=== PATIENT | male | born 1950 | race Caucasian/White ===

== ENCOUNTER 2017-02-11 10:00 | Day surgery (SDC) | payer BC ==
[~2017-02-11 10:00] MED LIST: Lactated Ringers 1,000 ML IV SCH
[2017-02-11] MEDS ORDERED: Lidocaine 2% 5 ML SDV ONE (10:27)
[2017-02-11] MEDS ORDERED: Midazolam 1 MG/ML 2 ML SDV ONE (10:28)
[2017-02-11] MEDS ORDERED: fentaNYL 100 MCG/2 ML SDV ONE (10:28)
[2017-02-11] MEDS ORDERED: Propofol 200 MG/20 ML SDV ONE (10:28)
--- NOTE | 2017-02-11 11:30 | PCM.PREANE ---
Preanesthetic Assessment - Anesthesia/Transfusion/Family Hx Anesthesia History: Prior Anesthesia Without Reaction Other Type of Anesthesia Reaction Comment: Denies any known problem in past Family History of Anesthesia Reaction: No Transfusion History: No Prior Transfusion(s) Intubation History: Unknown - Review of Systems General: No Symptoms Pulmonary: No Symptoms Cardiovascular: No Symptoms Gastrointestinal: No Symptoms, Other (h/o exc. of tubular neuroma 2 years ago in [facility]) Neurological: No Symptoms Other: Reports: None - Physical Assessment O2 Sat by Pulse Oximetry: 96 Respiratory Rate: 16 Vital Signs: Last Vital Signs Temp 36.7 C 02/11/17 10:13 Pulse 76 02/11/17 10:13 Resp 16 02/11/17 10:13 BP 128/92 H 02/11/17 10:13 Pulse Ox 96 02/11/17 10:13 Height: 1.8 m Weight: 91.626 kg ASA Class: 3 Mental Status: Alert & Oriented x3 Airway Class: Mallampati = 2 Dentition: Reports: Bridge (fixed bridge upper front) Thyro-Mental Finger Breadths: 3 Mouth Opening Finger Breadths: 3 ROM/Head Extension: Full Lungs: Clear to Auscultation, Normal Respiratory Effort Cardiovascular: Regular Rate, Regular Rhythm - Allergies Allergies/Adverse Reactions: Allergies Allergy/AdvReac Type Severity Reaction Status Date / Time No Known Allergies Allergy Verified 02/08/17 15:14 - Blood Blood Available: No - Anesthesia Plan Pre-Op Medication Ordered: None - Acknowledgements Anesthesia Type Planned: MAC Pt an Appropriate Candidate for the Planned Anesthesia: Yes Alternatives and Risks of Anesthesia Discussed w Pt/Guardian: Yes Pt/Guardian Understands and Agrees with Anesthesia Plan: Yes PreAnesthesia Questionnaire - Past Health History Medical/Surgical History: Denies Medical/Surgical History Other HEENT History: wears glasses, has upper partial removable denture Cardiovascular History: Reports: High Cholesterol, Hypertension, PVD (s/p right carotid endarterectomy 7-8 years ago) Other Respiratory History: REports long time smoker, current use 1 pack/day Gastrointestinal History: Reports: Other (See Below) (h/o tubular adenoma of colon) Musculoskeletal History: Reports: Arthritis, Back Pain, Chronic, Fracture, Neck Pain, Chronic, Osteoarthritis (bilateral knees) Other Musculoskeletal History: hx of fx fingers Dermatologic History: Reports: Other (See Below) Other Dermatologic History: hx of hill on hands with skin grafts - Past Surgical History Head Surgeries/Procedures: Reports: None Cardiovascular Surgical History: Reports: Carotid Endarterectomy Other Cardiovascular Surgeries/Procedures: right side GI Surgical History: Reports: Colonoscopy Dermatological Surgical History: Reports: Skin Graft - SUBSTANCE USE Smoking Status *Q: Current Every Day Smoker Tobacco Use Within Last Twelve Months: Cigarettes Recreational Drug Use History: No - HOME MEDS Home Medications: Home Meds Aspirin [Ecotrin] 81 mg PO DAILY 11/21/14 [History] Losartan/Hydrochlorothiazide [Losartan-HCTZ 50-12.5 MG] 1 tab PO DAILY 11/21/14 [History] Fish Oil/[place]-3 Fatty Acids [Fish Oil 1,000 MG] 1 gm PO DAILY 02/08/17 [History ] - CURRENT (IN HOUSE) MEDS Current Meds: Current Medications Lactated Ringer's (Ringers, Lactated) 1,000 mls @ 125 mls/hr IV ASDIRECTED [facility]I Last Admin: 02/11/17 10:15 Dose: 125 mls/hr Discontinued Medications Fentanyl (Sublimaze) Confirm Administered Dose 100 mcg .ROUTE .STK-MED ONE Stop: 02/11/17 10:29 Lidocaine (Xylocaine-Mpf 2%) Confirm Administered Dose 10 ml .ROUTE .STK-MED ONE Stop: 02/11/17 10:28 Midazolam HCl (Versed 1 Mg/Ml) Confirm Administered Dose 2 mg .ROUTE .STK-MED ONE Stop: 02/11/17 10:29 Propofol (Diprivan 20 Ml) Confirm Administered Dose 400 mg .ROUTE .STK-MED ONE Stop: 02/11/17 10:29
[2017-02-11] MEDS ORDERED: Lactated Ringers 1,000 ML IV SCH (13:30)
--- NOTE | 2017-02-11 13:31 | PCM.OPNOTE ---
- General Post-Op/Procedure Note Date of Surgery/Procedure: 02/11/17 Operative Procedure(s): Colonoscopy Pre Op Diagnosis: Personal history of colon polyps Post-Op Diagnosis: Sigmoid diverticulosis Anesthesia Technique: MAC (ASA III) Primary Surgeon: Higinio Eid Condition: Good Free Text/Narrative:: Dictation [id number] CPT CODE 08482
--- NOTE | 2017-02-11 13:46 | OR ---
SURGEON: Higinio Eid M.D. DATE OF PROCEDURE: 02/11/2017 OPERATION PERFORMED: Colonoscopy. ANESTHESIA: MAC. ASA CLASSIFICATION: II. PREOPERATIVE DIAGNOSIS: Personal history of colon polyps. POSTOPERATIVE DIAGNOSIS: Diverticulosis of the sigmoid colon. DESCRIPTION OF PROCEDURE: The patient was taken to the endoscopy room and positioned on the endoscopy table in the left lateral decubitus position. Time-out was called for appropriate identification of the patient and procedure. Monitored anesthesia care was provided. The colonoscope was inserted into the rectum and advanced without difficulty to the cecum, where the colonoscope was retroflexed to visualize the ascending colon from below. The colonoscope was then straightened and slowly withdrawn. The cecum, ascending colon, hepatic flexure, transverse colon, splenic flexure, and descending colon showed no tumors, polyps, diverticula, or angiodysplastic changes. Sigmoid colon demonstrates numerous scattered diverticula. No stricture, spasm, or bleeding was noted. No polyps were encountered in the sigmoid colon. The colonoscope was then withdrawn to the rectum and retroflexed to visualize the anal orifice from above. No tumors or polyps were seen. There were no acute hemorrhoidal changes. The colonoscope was then straightened, the rectum aspirated, and the colonoscope removed. The patient tolerated the procedure well and was taken to recovery room in stable condition. COLEMAN / SHA /[id number]
[2017-02-11 14:45] VITALS: BP 136/89
--- NOTE | 2017-02-11 15:24 | PCM48HPAN ---
Post Anesthesia Note - EVALUATION WITHIN 48HRS OF ANESTHETIC Vital Signs in Normal Range: Yes Patient Participated in Evaluation: Yes Respiratory Function Stable: Yes Airway Patent: Yes Cardiovascular Function Stable: Yes Hydration Status Stable: Yes Pain Control Satisfactory: Yes Nausea and Vomiting Control Satisfactory: Yes Mental Status Recovered: Yes
== END 2017-02-11 14:16 | disposition home or self-care (01) ==
LOC: MW.SDS 10:00
PROVIDERS: ATTEND Surgery
DX: Z12.11 Encounter for screening for malignant neoplasm of colon (principal); K57.30 Diverticulosis of large intestine without perforation or abscess without bleeding; I10 Essential (primary) hypertension; E78.00 Pure hypercholesterolemia, unspecified; F17.210 Nicotine dependence, cigarettes, uncomplicated; M17.0 Bilateral primary osteoarthritis of knee; G89.29 Other chronic pain; M54.2 Cervicalgia; Z86.010 Personal history of colon polyps; Z87.828 Personal history of other (healed) physical injury and trauma; Z80.0 Family history of malignant neoplasm of digestive organs; Z79.82 Long term (current) use of aspirin; Z79.899 Other long term (current) drug therapy; Z98.890 Other specified postprocedural states
CPT/HCPCS: 45378; J2250; J3010; J7120; J2704

== ENCOUNTER 2019-12-19 08:01 | Day surgery (SDC) | payer OTHER ==
[~2019-12-19 08:01] MED LIST changes: +Midazolam 1 MG/ML 2 ML SDV ONE; +Propofol 200 MG/20 ML SDV ONE
--- NOTE | 2019-12-19 08:38 | PCM.PREANE ---
Preanesthetic Assessment - Anesthesia/Transfusion/Family Hx Anesthesia History: Prior Anesthesia Without Reaction Other Type of Anesthesia Reaction Comment: Denies any known problem in past Family History of Anesthesia Reaction: No Transfusion History: No Prior Transfusion(s) Intubation History: Unknown - Review of Systems General: No Symptoms Pulmonary: No Symptoms Cardiovascular: No Symptoms Gastrointestinal: No Symptoms Neurological: No Symptoms Other: Reports: None - Physical Assessment NPO Status Date: 12/18/19 Height: 5 ft 11 in Weight: 96.615 kg ASA Class: 2 Mental Status: Alert & Oriented x3 Airway Class: Mallampati = 2 Dentition: Reports: Normal Dentition Lungs: Clear to Auscultation, Normal Respiratory Effort Cardiovascular: Regular Rate, Regular Rhythm - Allergies Allergies/Adverse Reactions: Allergies Allergy/AdvReac Type Severity Reaction Status Date / Time No Known Allergies Allergy Verified 12/13/19 10:11 - Blood Blood Available: No - Anesthesia Plan Pre-Op Medication Ordered: None - Acknowledgements Anesthesia Type Planned: General Anesthesia (tiva) Pt an Appropriate Candidate for the Planned Anesthesia: Yes Alternatives and Risks of Anesthesia Discussed w Pt/Guardian: Yes Pt/Guardian Understands and Agrees with Anesthesia Plan: Yes Additional Comments: anes prob list: smoker, htn, s/p CEA PLAN: tiva PreAnesthesia Questionnaire - Past Health History Medical/Surgical History: Denies Medical/Surgical History HEENT History: Reports: Cataract Other HEENT History: wears glasses, has upper partial removable denture Cardiovascular History: Reports: High Cholesterol, Hypertension, PVD Respiratory History: Reports: Sleep Apnea Other Respiratory History: states has a CPAP but doesn't use it regularly Gastrointestinal History: Reports: Diverticulosis Genitourinary History: Reports: None Musculoskeletal History: Reports: Arthritis, Back Pain, Chronic, Fracture, Neck Pain, Chronic, Osteoarthritis Other Musculoskeletal History: hx of fx fingers and back Psychiatric History: Reports: None Endocrine/Metabolic History: Reports: None Hematologic History: Reports: None Immunologic History: Reports: None Oncologic (Cancer) History: Reports: None Dermatologic History: Reports: Other (See Below) Other Dermatologic History: hx of hill on hands with skin grafts - Infectious Disease History Infectious Disease History: Reports: None - Past Surgical History Head Surgeries/Procedures: Reports: None HEENT Surgical History: Reports: Cataract Surgery Cardiovascular Surgical History: Reports: Carotid Endarterectomy Other Cardiovascular Surgeries/Procedures: right side Respiratory Surgical History: Reports: None GI Surgical History: Reports: Colonoscopy, Polypectomy Female Surgical History: Reports: None Male Surgical History: Reports: None Endocrine Surgical History: Reports: None Musculoskeletal Surgical History: Reports: Other (See Below) Other Musculoskeletal Surgeries/Procedures:: hx: SKin Grafting to both hands due to hill in 1979 Dermatological Surgical History: Reports: Skin Graft - SUBSTANCE USE Tobacco Use Status *Q: Current Every Day Tobacco User - HOME MEDS Home Medications: Home Meds Aspirin [Ecotrin EC] 81 mg PO DAILY 11/21/14 [History] Fish Oil/[place]-3 Fatty Acids [Fish Oil 1,000 MG] 1 gm PO DAILY 02/08/17 [History] Ascorbic Acid [Vitamin C] 1 tab PO DAILY 12/13/19 [History] Cholesterol Support 1 tab PO DAILY 12/13/19 [History] Losartan [Cozaar] 1 tab PO DAILY 12/13/19 [History] Multivitamin [Multi-Day Vitamins] 1 tab PO DAILY 12/13/19 [History] Mv-Min/Vit C/Glut/Lysine/Hb124 [Airborne Effervescent Tablet] 1 tab PO DAILY 12/13/19 [History] atorvaSTATin [Lipitor] 0.5 tab PO BEDTIME 12/13/19 [History] hydroCHLOROthiazide [Hydrochlorothiazide] 1 tab PO DAILY 12/13/19 [History] - CURRENT (IN HOUSE) MEDS Current Meds: Current Medications Lactated Ringer's (Ringers, Lactated) 1,000 mls @ 125 mls/hr IV ASDIRECTED [facility] Last Admin: 12/19/19 08:25 Dose: 125 mls/hr Documented by: Discontinued Medications Midazolam HCl (Versed 1 Mg/Ml) Confirm Administered Dose 2 mg .ROUTE .STK-MED ONE Stop: 12/19/19 07:16 Propofol (Diprivan 20 Ml) Confirm Administered Dose 600 mg .ROUTE .STK-MED ONE Stop: 12/19/19 07:16
--- NOTE | 2019-12-19 09:45 | PCM.OPNOTE ---
- General Post-Op/Procedure Note Date of Surgery/Procedure: 12/19/19 Operative Procedure(s): colonoscopy w bx Findings: [id number] Pre Op Diagnosis: colon polyp hx Post-Op Diagnosis: Same Anesthesia Technique: Moderate Sedation Primary Surgeon: Obi Kessler Pathology: sent Complications: None Condition: Good
--- NOTE | 2019-12-19 10:50 | PCM.POSTAN ---
POST ANESTHESIA ASSESSMENT - MENTAL STATUS Mental Status: Alert, Oriented - VITAL SIGNS Vital Signs: Last Vital Signs Temp 98.2 F 12/19/19 08:46 Pulse 74 12/19/19 09:53 Resp 12 12/19/19 09:53 BP 110/66 12/19/19 09:53 Pulse Ox 96 12/19/19 09:53 - RESPIRATORY Respiratory Status: Respiratory Rate WNL, Airway Patent, O2 Saturation Stable - CARDIOVASCULAR CV Status: Pulse Rate WNL, Blood Pressure Stable - GASTROINTESTINAL GI Status: No Symptoms - POST OP HYDRATION Hydration Status: Adequate & Stable
--- NOTE | 2019-12-19 10:51 | PCM48HPAN ---
Post Anesthesia Note - EVALUATION WITHIN 48HRS OF ANESTHETIC Vital Signs in Normal Range: Yes Patient Participated in Evaluation: Yes Respiratory Function Stable: Yes Airway Patent: Yes Cardiovascular Function Stable: Yes Hydration Status Stable: Yes Pain Control Satisfactory: Yes Nausea and Vomiting Control Satisfactory: Yes Mental Status Recovered: Yes Vital Signs: Last Vital Signs Temp 98.2 F 12/19/19 08:46 Pulse 74 12/19/19 09:53 Resp 12 12/19/19 09:53 BP 110/66 12/19/19 09:53 Pulse Ox 96 12/19/19 09:53
[2019-12-19 11:23] VITALS: BP 145/87; PULSE 77
--- NOTE | 2019-12-19 12:56 | OR ---
SURGEON: Obi Kessler MD DATE OF PROCEDURE: 12/19/2019 PREOPERATIVE DIAGNOSIS: History of colon polyp. POSTOPERATIVE DIAGNOSES: Colon polyp and diverticulosis. PROCEDURE PERFORMED: Colonoscopy with polypectomy. DESCRIPTION OF PROCEDURE: The patient was taken to the endoscopy room. A time out was called, patient identified, and procedure identified. Diprivan was then administrated. Patient went from awake to sleep, hearing doctor talking or door closing is normal. Perineum inspection and digital examination were then performed. A well- lubricated colonoscope was gently inserted through the rectum, advanced past the rectosigmoid junction, the descending colon, splenic flexure, transverse colon, hepatic flexure, ascending colon, arrived to the cecum. Cecum was identified as dictated in the finding. Then the scope was carefully withdrawn while attention was paid to the mucosal surface for any abnormality. Air will be sucked out during the scope withdrawal. At the rectum, retroflexed to examine any rectal diseases, fistula or hemorrhoids. During mucosal examination, abnormality or polyp encountered. Using snare equipment, the abnormality or the polyp was then snared off using electrocautery. The Patient tolerated procedure well. There were no intraoperative complications, and Dr. Kessler was present throughout the whole procedure. FINDINGS: 1. The patient is easily sedated with [employer] and Diprivan, the patient is soundly snoring. 2. Bowel prep is average. Large amount of opaque liquid stool and some stool ball and some semi-formed stool and required lots of irrigation, slightly compromised the study, not very bad, but required lots of irrigation. Colon rather straightforward. Cecum indicated by ileocecal fold, one-to- one indentation, appendiceal orifice. ScopeGuide is pointing south. Mucosa examined upon scope with lots of irrigation. The patient has moderate amount of diverticulosis in the left colon. No signs or symptoms of diverticulitis. Two small polyps removed with biopsy forceps and one at 110 cm when the scope go in and one at 95. I will refer to the path report for true number and both were 2 to 3 mm sessile small polyp, biopsy forceps removed. The patient does not have other growth, mass, inflammation, stricture, AV malformation, bleeding, none of those. The patient has moderate internal hemorrhoids, mild external hemorrhoids. The patient would benefit from repeat colonoscopy, depends on the polyp pathology. RASHMI / SHA /[id number]
== END 2019-12-19 10:15 | disposition home or self-care (01) ==
LOC: MW.SDS 08:01
PROVIDERS: ATTEND Surgery
DX: Z12.11 Encounter for screening for malignant neoplasm of colon (principal); D12.6 Benign neoplasm of colon, unspecified; K57.30 Diverticulosis of large intestine without perforation or abscess without bleeding; K64.8 Other hemorrhoids; K64.4 Residual hemorrhoidal skin tags; I10 Essential (primary) hypertension; E78.00 Pure hypercholesterolemia, unspecified; F17.210 Nicotine dependence, cigarettes, uncomplicated; K42.9 Umbilical hernia without obstruction or gangrene; I73.9 Peripheral vascular disease, unspecified; G89.29 Other chronic pain; Z79.899 Other long term (current) drug therapy; Z79.82 Long term (current) use of aspirin; Z98.890 Other specified postprocedural states
CPT/HCPCS: 45380; 88305; J2250; J2704; J7120

== ENCOUNTER 2021-04-21 14:53 | Emergency (ER) | payer OTHER ==
[2021-04-21 15:07] VITALS: PULSE 83
[2021-04-21] MEDS: Tetracaine HCl/PF 0.5% 4 ML Bottle EYEBOTH ONE (15:11)
[2021-04-21 15:45] VITALS: BP 120/77
== END 2021-04-21 15:48 | disposition home or self-care (01) ==
LOC: MW.ED 14:53
DX: H01.001 Unspecified blepharitis right upper eyelid (principal)
CPT/HCPCS: 99283

== ENCOUNTER 2022-07-02 10:32 | Day surgery (SDC) | payer OTHER ==
[2022-07-02] MEDS ORDERED: Lactated Ringers 1,000 ML IV SCH (11:30)
[2022-07-02] MEDS ORDERED: Propofol 200 MG/20 ML SDV ONE (11:30)
[2022-07-02] MEDS ORDERED: Phenylephrine HCl 0.5 MG/5 ML AMP ONE (12:11)
[2022-07-02 13:28] VITALS: BP 134/78; PULSE 69
== END 2022-07-02 13:05 | disposition home or self-care (01) ==
LOC: MW.SDS 10:32
PROVIDERS: ATTEND Surgery
DX: Z12.11 Encounter for screening for malignant neoplasm of colon (principal); D12.4 Benign neoplasm of descending colon; K62.1 Rectal polyp; K57.30 Diverticulosis of large intestine without perforation or abscess without bleeding; I10 Essential (primary) hypertension; E78.00 Pure hypercholesterolemia, unspecified; M17.0 Bilateral primary osteoarthritis of knee; G47.30 Sleep apnea, unspecified; I25.10 Atherosclerotic heart disease of native coronary artery without angina pectoris; Z95.818 Presence of other cardiac implants and grafts; M54.9 Dorsalgia, unspecified; G89.29 Other chronic pain; F17.210 Nicotine dependence, cigarettes, uncomplicated; Z80.0 Family history of malignant neoplasm of digestive organs; Z86.010 Personal history of colon polyps; Z85.038 Personal history of other malignant neoplasm of large intestine; Z79.82 Long term (current) use of aspirin; Z79.899 Other long term (current) drug therapy
CPT/HCPCS: 45380; J2370; J2704; J7120; 00811

== ENCOUNTER 2023-05-25 08:54 | Day surgery (SDC) | payer OTHER ==
[2023-05-25] MEDS: Lactated Ringers 1,000 ML IV SCH (09:14)
[2023-05-25] MEDS ORDERED: Lidocaine 2% 5 ML SDV ONE (09:56)
[2023-05-25] MEDS ORDERED: propofoL 50 ML ONE (09:57)
[2023-05-25] MEDS ORDERED: Ondansetron 4 MG/2 ML SDV ONE (10:12)
[2023-05-25] MEDS ORDERED: fentaNYL 100 MCG/2 ML SDV ONE (10:12)
[2023-05-25] MEDS ORDERED: Phenylephrine HCl 0.5 MG/5 ML AMP ONE ×2 (10:32→11:03)
[2023-05-25 13:29] VITALS: BP 115/69; PULSE 66
== END 2023-05-25 11:52 | disposition home or self-care (01) ==
LOC: MW.SDS 08:54
PROVIDERS: ATTEND Surgery
DX: K63.5 Polyp of colon (principal); K21.00 Gastro-esophageal reflux disease with esophagitis, without bleeding; K44.9 Diaphragmatic hernia without obstruction or gangrene; K57.30 Diverticulosis of large intestine without perforation or abscess without bleeding; K64.8 Other hemorrhoids; I10 Essential (primary) hypertension; E78.00 Pure hypercholesterolemia, unspecified; F17.210 Nicotine dependence, cigarettes, uncomplicated; Z79.82 Long term (current) use of aspirin; Z79.899 Other long term (current) drug therapy
CPT/HCPCS: 43239; 45380; J2371; J2405; J2704; J3010; J7120; 00813; 88305; 99100; J3490

== ENCOUNTER 2023-09-26 11:10 | Emergency (ER) | payer OTHER ==
[2023-09-26 11:28] VITALS: PULSE 71
[2023-09-26 11:44] LABS: BASOPHILS ABSOLUTE AUTO 0.11 K/uL (0.00-0.20); BASOPHILS PERCENT AUTO 1.5 % (0.0-1.0); EOSINOPHILS ABSOLUTE AUTO 0.14 K/uL (0.00-0.45); EOSINOPHILS PERCENT AUTO 1.9 % (0.0-6.0); HEMATOCRIT 49.4 % (42.0-52.0); HEMOGLOBIN 16.8 g/dL (14.0-18.0); IMMATURE GRAN ABSOLUTE AUTO 0.02 K/uL (0.00-0.05); IMMATURE GRAN PERCENT AUTO 0.3 % (0.0-0.4); LYMPHOCYTES ABSOLUTE AUTO 2.01 K/uL (1.00-4.80); LYMPHOCYTES PERCENT AUTO 26.8 % (24.0-44.0); MEAN CORPUSCULAR HEMOGLOBIN 31.2 pg (28.0-32.0); MEAN CORPUSCULAR VOLUME 91.8 fL (83.0-99.0); MEAN PLATELET VOLUME 9.6 fL (9.4-12.4); MONOCYTES ABSOLUTE AUTO 0.63 K/uL (0.00-0.80); MONOCYTES PERCENT AUTO 8.4 % (0.0-8.0); NEUTROPHILS PERCENT AUTO 61.1 % (41.0-71.0); PLATELET COUNT,PLT 231 K/uL (150-400); RED BLOOD CELL COUNT 5.38 M/uL (4.52-5.90); WHITE BLOOD CELL COUNT,WBC 7.51 K/uL (3.9-11.3)
[2023-09-26 12:09] LABS: A/G RATIO 1.3 (0.9-1.6); ALBUMIN 4.1 g/dL (3.4-5.0); BILIRUBIN TOTAL 0.5 mg/dL (0.2-1.0); CREATININE 1.1 mg/dL (0.8-1.3); EST CRCL DRUG DOSING (CG) 65.6 mL/min; PROTEIN TOTAL,TP 7.2 g/dL (6.4-8.2)
[2023-09-26 12:51] LABS: APPEARANCE,URINE CLEAR; BILIRUBIN,URINE NEGATIVE (NEGATIVE); COLOR,URINE YELLOW; GLUCOSE,URINE NEGATIVE (NEGATIVE); KETONES,URINE NEGATIVE (NEGATIVE); LEUKOCYTE ESTERASE,URINE NEGATIVE (NEGATIVE); NITRITE,URINE NEGATIVE (NEGATIVE); OCCULT BLOOD,URINE NEGATIVE (NEGATIVE); PROTEIN,URINE NEGATIVE (NEGATIVE); UROBILINOGEN,URINE 0.2 EU/dL (<2.0)
[2023-09-26 16:12] VITALS: BP 141/86
== END 2023-09-26 12:51 | disposition home or self-care (01) ==
LOC: MW.ED 11:10
DX: I10 Essential (primary) hypertension (principal); M19.90 Unspecified osteoarthritis, unspecified site; E78.00 Pure hypercholesterolemia, unspecified; E66.9 Obesity, unspecified; Z79.82 Long term (current) use of aspirin; Z79.899 Other long term (current) drug therapy; Z75.8 Other problems related to medical facilities and other health care; Z68.29 Body mass index [BMI] 29.0-29.9, adult
CPT/HCPCS: 36415; 71045; 71045-26; 80053; 81003; 85025; 93005; 93010; 99284

== ENCOUNTER 2023-11-16 13:37 | Emergency (ER) | payer OTHER ==
[2023-11-16 14:10] VITALS: BP 120/70
[2023-11-16 14:40] LABS: BASOPHILS ABSOLUTE AUTO 0.11 K/uL (0.00-0.20); BASOPHILS PERCENT AUTO 1.2 % (0.0-1.0); EOSINOPHILS ABSOLUTE AUTO 0.31 K/uL (0.00-0.45); EOSINOPHILS PERCENT AUTO 3.5 % (0.0-6.0); HEMATOCRIT 47.9 % (42.0-52.0); HEMOGLOBIN 16.6 g/dL (14.0-18.0); IMMATURE GRAN ABSOLUTE AUTO 0.01 K/uL (0.00-0.05); IMMATURE GRAN PERCENT AUTO 0.1 % (0.0-0.4); LYMPHOCYTES ABSOLUTE AUTO 2.61 K/uL (1.00-4.80); LYMPHOCYTES PERCENT AUTO 29.3 % (24.0-44.0); MEAN CORPUSCULAR HEMOGLOBIN 31.2 pg (28.0-32.0); MEAN CORPUSCULAR HGB CONC 34.7 g/dL (32.0-36.0); MEAN PLATELET VOLUME 9.3 fL (9.4-12.4); MONOCYTES ABSOLUTE AUTO 0.93 K/uL (0.00-0.80); MONOCYTES PERCENT AUTO 10.4 % (0.0-8.0); NEUTROPHILS ABSOLUTE AUTO 4.93 K/uL (1.80-7.70); NEUTROPHILS PERCENT AUTO 55.5 % (41.0-71.0); PLATELET COUNT,PLT 254 K/uL (150-400); RED BLOOD CELL COUNT 5.32 M/uL (4.52-5.90)
[2023-11-16] MEDS: Sodium Chloride 0.9% 1,000 ML IV SCH (14:50)
[2023-11-16 15:07] LABS: CALCIUM 8.7 mg/dL (8.5-10.1); CARBON DIOXIDE,CO2 23.8 mmol/L (21.0-32.0); CREATININE 0.9 mg/dL (0.8-1.3); EST CRCL DRUG DOSING (CG) 72.83 mL/min; POTASSIUM,K 3.8 mmol/L (3.5-5.1)
[2023-11-16] MEDS: Lidocaine 4% 1 each Patch TOP ONE (15:13)
[2023-11-16] MEDS: Sodium Chloride 0.9% 1,000 ML IV ONE (15:40)
[2023-11-16] MEDS: Metoclopramide 10 MG/2 ML SDV IVPUSH ONE (15:41)
[2023-11-16 18:02] VITALS: PULSE 67
== END 2023-11-16 18:02 | disposition home or self-care (01) ==
LOC: MW.ED 13:37
DX: R51.9 Headache, unspecified (principal); M54.50 Low back pain, unspecified; I10 Essential (primary) hypertension; E78.00 Pure hypercholesterolemia, unspecified; E66.9 Obesity, unspecified; Z68.31 Body mass index [BMI] 31.0-31.9, adult; Z79.899 Other long term (current) drug therapy; Z79.82 Long term (current) use of aspirin
CPT/HCPCS: 36415; 70450; 72100; 80048; 85025; 99284; A9270; J7030

== ENCOUNTER 2024-04-06 13:57 | Emergency (ER) | payer OTHER ==
[2024-04-06] MEDS ORDERED: Morphine 2 MG/ML SYRINGE IVPUSH PRN (14:05)
[2024-04-06 14:09] LABS: HEMATOCRIT 45.6 % (42.0-52.0); HEMOGLOBIN 15.6 g/dL (14.0-18.0); MEAN CORPUSCULAR HEMOGLOBIN 30.1 pg (28.0-32.0); MEAN CORPUSCULAR HGB CONC 34.2 g/dL (32.0-36.0); MEAN PLATELET VOLUME 9.4 fL (9.4-12.4); PLATELET COUNT,PLT 241 K/uL (150-400); RED BLOOD CELL COUNT 5.18 M/uL (4.52-5.90); WHITE BLOOD CELL COUNT,WBC 14.79 K/uL (3.9-11.3)
[2024-04-06] MEDS: Morphine 2 MG/ML SYRINGE IVPUSH ONE (14:09)
[2024-04-06] MEDS: Ondansetron 4 MG/2 ML SDV IVPUSH ONE (14:09)
[2024-04-06] MEDS: Pantoprazole 40 MG in Sodium Chloride 0.9% 10 ML IVPUSH ONE (14:09)
[2024-04-06] MEDS: Sodium Chloride 0.9% 1,000 ML IV ONE ×2 (14:09→16:17)
[2024-04-06] MEDS: Aspirin 81 MG Tab.Chew PO ONE (14:10)
[2024-04-06 14:32] LABS: BAND ABSOLUTE MAN 6.51; EOSINOPHILS ABSOLUTE MAN 0.59 K/uL (0.00-0.45); EOSINOPHILS PERCENT MAN 4 % (0-6); LYMPHOCYTES ABSOLUTE MAN 6.51 K/uL (1.00-4.80); LYMPHOCYTES PERCENT MAN 44 % (24-44); MONOCYTES ABSOLUTE MAN 1.48 K/uL (0.00-0.80); MONOCYTES PERCENT MAN 10 % (0-8); SEG NEUTROPHILS ABSOLUTE MAN 6.21 K/uL (1.80-7.70); SEG NEUTROPHILS PERCENT MAN 42 % (41-71)
[2024-04-06 14:40] LABS: INR 1.06 (0.86-1.11)
[2024-04-06 14:51] LABS: A/G RATIO 1.1 (0.9-1.6); ALBUMIN 3.5 g/dL (3.4-5.0); BILIRUBIN TOTAL 0.3 mg/dL (0.2-1.0); CALCIUM 8.7 mg/dL (8.5-10.1); CARBON DIOXIDE,CO2 27.9 mmol/L (21.0-32.0); CREATININE 1.2 mg/dL (0.8-1.3); EST CRCL DRUG DOSING (CG) 57.45 mL/min; MAGNESIUM 1.7 mg/dL (1.8-2.4); PROTEIN TOTAL,TP 6.7 g/dL (6.4-8.2)
[2024-04-06] MEDS: Magnesium Sulf/Wat 2 GM/50 mL 2 GM in Premix Bag 1 BAG IV ONE (16:17)
[2024-04-06] MEDS: Iopamidol 755 MG/ML 500 ML Multipack Bottle IVPUSH STA (17:21)
[2024-04-06 17:33] LABS: APPEARANCE,URINE CLEAR; BILIRUBIN,URINE NEGATIVE (NEGATIVE); COLOR,URINE YELLOW; GLUCOSE,URINE NEGATIVE (NEGATIVE); KETONES,URINE NEGATIVE (NEGATIVE); LEUKOCYTE ESTERASE,URINE NEGATIVE (NEGATIVE); NITRITE,URINE NEGATIVE (NEGATIVE); OCCULT BLOOD,URINE NEGATIVE (NEGATIVE); PH,URINE 5.5 (5.0-8.0); PROTEIN,URINE NEGATIVE (NEGATIVE); UROBILINOGEN,URINE 0.2 EU/dL (<2.0)
[2024-04-06 18:01] VITALS: BP 167/90; PULSE 76
== END 2024-04-06 18:01 | disposition home or self-care (01) ==
LOC: MW.ED 13:57
DX: R07.9 Chest pain, unspecified (principal); R10.84 Generalized abdominal pain; R61 Generalized hyperhidrosis; R74.02 Elevation of levels of lactic acid dehydrogenase [LDH]; R00.1 Bradycardia, unspecified; E87.6 Hypokalemia; E83.42 Hypomagnesemia; L98.9 Disorder of the skin and subcutaneous tissue, unspecified; E86.0 Dehydration; B34.9 Viral infection, unspecified; A05.9 Bacterial foodborne intoxication, unspecified; I10 Essential (primary) hypertension; E78.00 Pure hypercholesterolemia, unspecified; E66.9 Obesity, unspecified; Z79.82 Long term (current) use of aspirin; Z79.899 Other long term (current) drug therapy
CPT/HCPCS: 36415; 71275; 74174; 80053; 81003; 82947; 83605; 83690; 83735; 83880; 84484; 85025; 85610; 93005; 96361; 96365; 96375; 99285; A9270; J2270; J2405; J2470; J3475; J7030; Q9967; 93010; 99283